=== PATIENT | female | born 1975 | race Two or more races ===

== ENCOUNTER 2020-02-11 12:18 | Outpatient (CLI) | payer OTHER | END 2020-02-11 19:00 | disposition home or self-care (01) | LOC: OFIC 805 12:18 | PROVIDERS: ATTEND Otolaryngology | DX: G47.33 Obstructive sleep apnea (adult) (pediatric) (principal); J34.2 Deviated nasal septum; H92.01 Otalgia, right ear; K21.9 Gastro-esophageal reflux disease without esophagitis; J30.89 Other allergic rhinitis ==

== ENCOUNTER → 2020-04-26 | Outpatient (CLI) | payer OTHER | END | disposition home or self-care (01) | LOC: OFIC 805 10:45 | PROVIDERS: ATTEND Otolaryngology | DX: K21.9 Gastro-esophageal reflux disease without esophagitis (principal); H92.01 Otalgia, right ear; J34.2 Deviated nasal septum; G47.33 Obstructive sleep apnea (adult) (pediatric); J30.89 Other allergic rhinitis ==

== ENCOUNTER 2020-05-17 15:08 | Outpatient (CLI) | payer OTHER | END 2020-05-17 16:20 | disposition home or self-care (01) | LOC: OFIC 805 15:08 | PROVIDERS: ATTEND Otolaryngology | DX: J30.89 Other allergic rhinitis (principal); G47.33 Obstructive sleep apnea (adult) (pediatric); J34.2 Deviated nasal septum; M27.40 Unspecified cyst of jaw ==

== ENCOUNTER → 2020-06-16 | Outpatient (CLI) | payer OTHER | END | disposition home or self-care (01) | LOC: OFIC 805 11:30 | PROVIDERS: ATTEND Otolaryngology | DX: M27.40 Unspecified cyst of jaw (principal); J30.89 Other allergic rhinitis; J34.2 Deviated nasal septum; J34.3 Hypertrophy of nasal turbinates ==

== ENCOUNTER → 2020-07-14 | Outpatient (CLI) | payer OTHER | END | disposition home or self-care (01) | LOC: OFIC 805 07-05 08:45 | PROVIDERS: ATTEND Otolaryngology | DX: J34.2 Deviated nasal septum (principal); J30.89 Other allergic rhinitis; R09.81 Nasal congestion; R13.19 Other dysphagia; J34.3 Hypertrophy of nasal turbinates ==

== ENCOUNTER 2020-11-14 13:56 | Outpatient (CLI) | payer OTHER | END 2020-11-14 15:15 | disposition home or self-care (01) | LOC: OFIC 805 13:56 | PROVIDERS: ATTEND Otolaryngology Otology & Neurotology | DX: R09.81 Nasal congestion (principal); J34.3 Hypertrophy of nasal turbinates; J34.2 Deviated nasal septum; M27.40 Unspecified cyst of jaw; K21.9 Gastro-esophageal reflux disease without esophagitis ==